=== PATIENT | male | born 1975 | race Caucasian/White ===

== ENCOUNTER 2020-12-27 18:13 | Emergency (ER) | payer BC ==
[~2020-12-27] VITALS: Ht 172.7 cm; Wt 75.2 kg
[~2020-12-27 18:13] MED LIST: MULT-658 PO
[2020-12-27 18:15] VITALS: BP 133/86
== END 2020-12-27 23:47 | disposition left against medical advice (07) ==
LOC: ED 19:18
DX: M79.604 Pain in right leg (principal); Z53.21 Procedure and treatment not carried out due to patient leaving prior to being seen by health care provider

== ENCOUNTER 2021-07-13 11:01 | Emergency (ER) | payer BC, OTHER ==
[~2021-07-13] VITALS: Ht 170.2 cm; Wt 80.0 kg
--- NOTE | 2021-07-13 11:09 | NUR ---
TRIAGE NURSE: C-COLLAR PLACED.
--- NOTE | 2021-07-13 11:39 | NUR ---
DR. ESCOBAR AT BEDSIDE FOR EVAL. PT RESTING FLAT IN [facility]. C-COLLAR CLEARED BY ED MD. PT TENDER TO LEFT SIDE OF NECK UPON PALPATION. DENIES TENDERNESS MIDLINE. DENIES LOC. PT HAS LEFT SIDED LOW BACK PAIN, LEFT HIP PAIN. RESTING IN POSITION OF COMFORT IN [facility]. CALL LIGHT W/IN REACH. PT DENIES NEEDS AT THIS TIME.
[2021-07-13] MEDS ORDERED: ACETAMINOPHEN 500 MG TABLET ONE (11:52)
--- NOTE | 2021-07-13 11:57 | NUR ---
PT TO RADIOLOGY VIA [facility]. GUIS.
[2021-07-13] MEDS ORDERED: ACETAMINOPHEN 325 MG TABLET PO ONE (12:00)
--- NOTE | 2021-07-13 12:43 | NUR ---
CHART UP FOR RECHCK.
--- NOTE | 2021-07-13 12:49 | NUR ---
ED MD AT BEDSIDE TO DISCUSS POC
[2021-07-13 13:28] VITALS: BP 108/81
== END 2021-07-13 13:48 | disposition home or self-care (01) ==
LOC: ED 11:31
DX: S39.012A Strain of muscle, fascia and tendon of lower back, initial encounter (principal); S16.1XXA Strain of muscle, fascia and tendon at neck level, initial encounter; S70.02XA Contusion of left hip, initial encounter; R51.9 Headache, unspecified; X58.XXXA Exposure to other specified factors, initial encounter; Y93.89 Activity, other specified; Y92.89 Other specified places as the place of occurrence of the external cause; Y99.0 Civilian activity done for income or pay
CPT/HCPCS: 70450; 72072; 72110; 72125; 99285